=== PATIENT | female | born 1930 | race Hispanic/Latino ===

== ENCOUNTER 2017-04-13 17:35 | Inpatient (IN) | payer MEDICARE ==
[2017-04-13 17:53] VITALS: BMI 22.3
--- NOTE | 2017-04-13 18:08 | ED PDOC ---
Arrival/HPI - General Chief Complaint: Female Genitourinary Time Seen by Provider: 04/13/17 17:56 Historian: Patient, Usp - History of Present Illness Narrative History of Present Illness (Text): 04/13/17 18:04 A 87 year old female, whose past medical history includes COPD, sent into the emergency department from correction for altered mental status for 2 days. long term suspected possible UTI and attempted to treat patient. Patient refused to take medication because she did not know what it was for. Patient was sent into the emergency room for further evaluation. Patient denies somatic complaints at this time. HPI and ROS limited. PMD: Dr. Bell Time/Duration: Other (2 days) Symptom Course: Unchanged Quality: Other Context: Home (correction) Past Medical History - Provider Review Nursing Documentation Reviewed: Yes - Pulmonary Hx Respiratory Disorders: Yes Hx Chronic Obstructive Pulmonary Disease (COPD): Yes - Psychiatric Hx Substance Use: No Family/Social History - Physician Review Nursing Documentation Reviewed: Yes Family/Social History: No Known Family HX Smoking Status: Heavy Smoker > 10 Cigarettes Daily Hx Alcohol Use: Yes Hx Substance Use: No Allergies/Home Meds Allergies/Adverse Reactions: Allergies No Known Allergies Allergy (Verified 04/13/17 19:47) Review of Systems - Review of Systems Systems not reviewed;Unavailable: Altered Mental Status Physical Exam Vital Signs Reviewed: Yes Vital Signs Temp Pulse Resp BP Pulse Ox 04/13/17 23:09 98.3 F 82 20 175/75 H 96 04/13/17 21:40 81 19 115/74 93 L 04/13/17 21:00 85 25 H 121/84 100 04/13/17 17:47 98.5 F 82 18 128/60 97 Temperature: Afebrile Blood Pressure: Normal Pulse: Regular Respiratory Rate: Normal Appearance: Positive for: Well-Appearing, Non-Toxic, Comfortable Pain Distress: None Mental Status: No: Alert and Oriented X 3 (Alert and Oriented X 2, disoriented to year) - Systems Exam Head: Present: Atraumatic, Normocephalic Pupils: Present: PERRL Extroacular Muscles: Present: EOMI Conjunctiva: Present: Normal Neck: Present: Normal Range of Motion Respiratory/Chest: Present: Clear to Auscultation, Good Air Exchange. No: Respiratory Distress, Accessory Muscle Use Cardiovascular: Present: Regular Rate and Rhythm, Normal S1, S2. No: Murmurs Abdomen: Present: Normal Bowel Sounds. No: Tenderness, Distention, Peritoneal Signs Upper Extremity: Present: Normal Inspection, Normal ROM, NORMAL PULSES. No: Cyanosis, Edema Lower Extremity: Present: Normal Inspection, NORMAL PULSES, Normal ROM. No: Edema Psychiatric: Present: Alert. No: Oriented x 3 (Oriented X 2, disoriented to year) Medical Decision Making ED Course and Treatment: 04/13/17 18:04 Impression: A 87 year old female sent in for altered mental status. Plan: -- Head CT -- Chest xray -- EKG -- Labs -- Blood and Urine culture -- Urinalysis -- Reassess and disposition Progress Notes: 04/13/17 18:32 EKG shows NSR at 84bpm with LVH, isolated t wave flattening in III and V2 04/13/17 20:17 Cxray concerning for ?L sided mass. CT chest ordered. CT head shows "1. Nonspecific white matter changes. Acute infarction may be CT occult within first 24 hours." Patient has no SIRS criteria. She is afebrile with normal wbc. Source of AMS could be uti vs worsening dementia vs chest pathology vs cva. Ceftriaxone ordered as correction thought source was ua and ucx and blood cx pending. Dr. Bell to admit for ams. 04/13/17 22:18 Getting more agitated. Ativan 1mg ordered 04/13/17 23:27 CT chest shows "Lobulated soft tissue mass left upper lung concerning for neoplastic etiology. Biopsy could be performed for definitive pathologic diagnosis. Small left lower lung infiltrate and consolidation possibly infectious/atelectatic etiology. T12 compression fracture." Maxipime and levaquin added due to ?pneumonia. - Lab Interpretations Lab Results: 04/13/17 18:30 04/13/17 18:30 Lab Results 04/13/17 18:30: Sodium 139, Potassium 4.5, Chloride 103, Carbon Dioxide 26, Anion Gap 15, BUN 29 H, Creatinine 1.0, Est GFR ( Amer) > 60, Est GFR ( Non-Af Amer) 52, Random Glucose 103, Calcium 9.8, Phosphorus 3.9, Magnesium 2.2 , Total Bilirubin 0.3, AST 26, ALT 22, Alkaline Phosphatase 94, Troponin I < 0.01, Total Protein 8.0, Albumin 4.1, Globulin 3.9, Albumin/Globulin Ratio 1.1, Lipase 25 04/13/17 18:30: WBC 9.5, RBC 4.00, Hgb 11.0 L, Hct 34.2 L, MCV 85.5, MCH 27.5, MCHC 32.2, RDW 14.3, Plt Count 304, MPV 10.6, Gran % 66.2, Lymph % (Auto) 25.1, [place] % (Auto) 6.6 H, Eos % (Auto) 1.8, Baso % (Auto) 0.3, Gran # 6.28, Lymph # 2.4, [place] # 0.6, Eos # 0.2, Baso # 0.03 I have reviewed the lab results: Yes - RAD Interpretation Radiology Orders: 04/13/17 17:59 HEAD W/O CONTRAST [CT] Stat CHEST PORTABLE [RAD] Stat - Medication Orders Current Medication Orders: Discontinued Medications Sodium Chloride (Sodium Chloride 0.9%) 500 mls @ 999 mls/hr IV .Q31M STA Stop: 04/13/17 20:15 Last Admin: 04/13/17 20:25 Dose: 999 mls/hr eMAR Start Stop Document 04/13/17 20:25 CNR (Rec: 04/13/17 20:25 CNR [id number]) Intravenous Solution Start Date 04/13/17 Start Time 20:25 Ceftriaxone Sodium (Rocephin 1 Gram Ivpb (D5w)) 1 gm in 100 mls @ 200 mls/hr IVPB STAT STA PRN Reason: Protocol Stop: 04/13/17 20:58 Last Admin: 04/13/17 21:10 Dose: 200 mls/hr eMAR Start Stop Document 04/13/17 21:10 CNR (Rec: 04/13/17 21:11 CNR [id number]) Intravenous Solution Start Date 04/13/17 Start Time 21:11 Lorazepam (Ativan) 0.5 mg IVP STAT STA PRN Reason: Protocol Stop: 04/13/17 20:08 Last Admin: 04/13/17 20:43 Dose: 0.5 mg IVP Administration Document 04/13/17 20:43 CNR (Rec: 04/13/17 20:43 CNR [id number]) Charges for Administration # of IVP Administrations 1 Lorazepam (Ativan) 1 mg IVP STAT STA PRN Reason: Protocol Stop: 04/13/17 22:18 Last Admin: 04/13/17 22:30 Dose: 1 mg IVP Administration Document 04/13/17 22:30 RD (Rec: 04/13/17 22:30 RD [id number]) Charges for Administration # of IVP Administrations 1 - Scribe Statement The provider has reviewed the documentation as recorded by the Scriblisa Garrison Provider Scribe Attestation: All medical record entries made by the Scribe were at my direction and personally dictated by me. I have reviewed the chart and agree that the record accurately reflects my personal performance of the history, physical exam, medical decision making, and the department course for this patient. I have also personally directed, reviewed, and agree with the discharge instructions and disposition. Disposition/Present on Arrival - Present on Arrival Any Indicators Present on Arrival: No History of DVT/PE: No History of Uncontrolled Diabetes: No Urinary Catheter: No History of Decub. Ulcer: No History Surgical Site Infection Following: None - Disposition Have Diagnosis and Disposition been Completed?: Yes Diagnosis: Altered mental status, Anemia, Pneumonia, Lung mass Disposition: HOSPITALIZED Disposition Time: 21:21 Patient Plan: Admission Patient Problems: Current Active Problems Problem Status Onset Altered mental status Acute Anemia Acute Abnormal chest xray Acute Condition: FAIR
[2017-04-13 18:51] LABS: BASO # 0.03 K/mm3 (0.0-2.0); BASO % 0.3 % (0.0-3.0); EOS # 0.2 (0.0-0.7); EOS % 1.8 % (1.5-5.0); GRAN # 6.28 (1.4-6.5); GRAN % 66.2 % (50.0-68.0); HEMATOCRIT 34.2 % (36.0-48.0); LYMPH # 2.4 (1.2-3.4); LYMPH % 25.1 % (22.0-35.0); MEAN CELL VOLUME 85.5 fl (80.0-105.0); MEAN CORPUSCULAR HEMOGLOBIN 27.5 pg (25.0-35.0); MEAN CORPUSCULAR HGB CONC 32.2 g/dl (31.0-37.0); MEAN PLATELET VOLUME 10.6 fl (7.0-11.0); MONO # 0.6 (0.1-0.6); MONO % 6.6 % (1.0-6.0); RED CELL DISTRIBUTION WIDTH 14.3 % (11.5-14.5); WHITE BLOOD COUNT 9.5 10^3/ul (4.5-11.0)
[2017-04-13 19:00] LABS: ALB/GLOB RATIO 1.1 (1.1-1.8); ALKALINE PHOSPHATASE 94 U/L (38-126); ALT/SGPT 22 U/L (7-56); AST/SGOT 26 U/L (14-36); BILIRUBIN,TOTAL 0.3 mg/dL (0.2-1.3); BLOOD UREA NITROGEN 29 mg/dL (7-21); CALCIUM 9.8 mg/dL (8.4-10.5); CARBON DIOXIDE 26 mmol/L (21-33); CHLORIDE 103 mmol/L (98-107); GFR AFRICAN-AMERICAN > 60; GLUCOSE,RANDOM 103 mg/dL (70-110); LIPASE 25 U/L (23-300); MAGNESIUM 2.2 mg/dL (1.7-2.2); PHOSPHOROUS 3.9 mg/dL (2.5-4.5); POTASSIUM 4.5 mmol/L (3.6-5.0); SODIUM 139 mmol/L (132-148)
[2017-04-13 19:11] LABS: TROPONIN I < 0.01 ng/mL
[2017-04-13] MEDS ORDERED: Sodium Chloride 0.9% 500 ML IV STA (19:45)
[2017-04-13] MEDS ORDERED: cefTRIAXone 1 gm 1 GM/100 ML BAG IVPB STA (20:29)
--- NOTE | 2017-04-13 20:55 | CT ---
EXAM: CT Head Without Intravenous Contrast CLINICAL HISTORY: 87 years old, female; Signs and symptoms; Altered mental status/memory loss; Confusion or disorientation TECHNIQUE: Axial computed tomography images of the head/brain without intravenous contrast. All CT scans at this facility use one or more dose reduction techniques, viz.: automated exposure control; ma/kV adjustment per patient size (including targeted exams where dose is matched to indication; i.e. head); or iterative reconstruction technique. COMPARISON: No relevant prior studies available. FINDINGS: Brain: Wwbu-ca-riepckcl atrophy. No intracranial hemorrhage. No mass. Several scattered foci of decreased attenuation within periventricular/subcortical white matter. No definite edema. Ventricles: No hydrocephalus. Bones/joints: No acute fracture. Soft tissues: Unremarkable. Vasculature: Atherosclerotic disease of intracranial arteries. Sinuses: No acute sinusitis. Mastoid air cells: No mastoid effusion. Orbits: Unremarkable as visualized. IMPRESSION: 1. Nonspecific white matter changes. Acute infarction may be CT occult within first 24 hours. If a focal deficit persists, consider followup CT or MRI for further evaluation. 2. Incidental/non-acute findings are described above.
[2017-04-13 21:11] LABS: URINE BILIRUBIN NEGATIVE (NEGATIVE); URINE BLOOD SMALL (NEGATIVE); URINE GLUCOSE (UA) NEGATIVE (NEGATIVE); URINE KETONE 15 mg/dL (NEGATIVE); URINE LEUKOCYTE ESTERASE NEGATIVE Leu/uL (NEGATIVE); URINE PROTEIN TRACE mg/dL (<30 mg/dL); URINE UROBILINOGEN 0.2 E.U./dL (<1 E.U./dL)
[2017-04-13 21:16] LABS: URINE APPEARANCE SL CLOUDY (CLEAR); URINE COLOR YELLOW (YELLOW)
[2017-04-13] MEDS ORDERED: Albuterol-Ipratrop 3 mg / 0.5 (3 ml) UD IH STA (21:21)
[2017-04-13 21:25] LABS: URINE BACTERIA FEW (NEG)
[2017-04-13] MEDS ORDERED: Iohexol 350 MG/100 ML VIAL ONE (21:50)
--- NOTE | 2017-04-13 23:20 | CT ---
EXAM: CT Chest With Intravenous Contrast EXAM DATE/TIME: 04/13/2017 9:23 PM CLINICAL HISTORY: 87 years old, female; Condition or disease; Other: Left sided mass vs. Infiltrate; Additional info: Xray l sided mass vs infiltrate, AMS TECHNIQUE: Axial computed tomography images of the chest with intravenous contrast. All CT scans at this facility use one or more dose reduction techniques, viz.: automated exposure control; ma/kV adjustment per patient size (including targeted exams where dose is matched to indication; i.e. head); or iterative reconstruction technique. MIP reconstructed images were created and reviewed. Coronal and sagittal reformatted images were created and reviewed. CONTRAST: 41.3 mL of OMNI 350 administered intravenously. COMPARISON: No relevant prior studies available. FINDINGS: Mild emphysematous changes in the upper lungs. Pulmonary embolism cannot be excluded due to bolus timing (lack of opacification of the pulmonary arteries). Mediastinal lymph nodes are noted. No aortic dissection or aneurysm. There is a lobulated mass in the left upper lung abutting the pulmonary fissure measuring approximately 2 x 3 cm. Possible second small subcentimeter lesion in the left lower lung image 96. Followup recommended to assess for stability. Small left lower lung infiltrate and consolidation possibly of infectious/atelectatic etiology. No pleural or pericardial effussions. Low-attenuation renal lesions incompletely imaged. There is a severe compression fracture of T12, age indeterminate.If there are prior studies, I would be happy to correlate them. IMPRESSION: Lobulated soft tissue mass left upper lung concerning for neoplastic etiology. Biopsy could be performed for definitive pathologic diagnosis. Small left lower lung infiltrate and consolidation possibly infectious/atelectatic etiology. T12 compression fracture.
[2017-04-13] MEDS ORDERED: levoFLOXacin 750 mg in D5W 750 MG/150 ML BAG IVPB STA (23:26)
[2017-04-13] MEDS ORDERED: Cefepime 1gm in NS 100ml 1 GM/100 ML BAG IVPB STA (23:26)
[2017-04-14 07:43] LABS: BASO # 0.03 K/mm3 (0.0-2.0); BASO % 0.3 % (0.0-3.0); EOS # 0.3 (0.0-0.7); EOS % 3.3 % (1.5-5.0); GRAN # 6.03 (1.4-6.5); GRAN % 69.7 % (50.0-68.0); LYMPH # 1.8 (1.2-3.4); LYMPH % 20.3 % (22.0-35.0); MEAN CELL VOLUME 85.1 fl (80.0-105.0); MEAN CORPUSCULAR HEMOGLOBIN 27.3 pg (25.0-35.0); MEAN CORPUSCULAR HGB CONC 32.1 g/dl (31.0-37.0); MEAN PLATELET VOLUME 10.5 fl (7.0-11.0); MONO # 0.6 (0.1-0.6); MONO % 6.4 % (1.0-6.0); RED CELL DISTRIBUTION WIDTH 14.1 % (11.5-14.5); WHITE BLOOD COUNT 8.7 10^3/ul (4.5-11.0)
[2017-04-14 07:59] LABS: IRON 58 ug/dL (45-180)
[2017-04-14 08:00] LABS: ALKALINE PHOSPHATASE 81 U/L (38-126); ALT/SGPT 23 U/L (7-56); AST/SGOT 20 U/L (14-36); BILIRUBIN,TOTAL 0.4 mg/dL (0.2-1.3); BLOOD UREA NITROGEN 23 mg/dL (7-21); CALCIUM 9.1 mg/dL (8.4-10.5); CARBON DIOXIDE 24 mmol/L (21-33); CHLORIDE 105 mmol/L (98-107); CHOLESTEROL 148 mg/dL (130-200); GFR AFRICAN-AMERICAN > 60; GLUCOSE,RANDOM 92 mg/dL (70-110); POTASSIUM 4.2 mmol/L (3.6-5.0); SODIUM 139 mmol/L (132-148); TOTAL PROTEIN 7.1 g/dL (5.8-8.3)
--- NOTE | 2017-04-14 08:11 | RAD ---
HISTORY: altered COMPARISON: No prior. FINDINGS: LUNGS: There is a 2 x 4 cm mass in the left upper lobe. This is suspicious for neoplastic lesion. PLEURA: No significant pleural effusion identified, no pneumothorax apparent. CARDIOVASCULAR: Normal. OSSEOUS STRUCTURES: No significant abnormalities. VISUALIZED UPPER ABDOMEN: Normal. OTHER FINDINGS: None. IMPRESSION: There is a 2 x 4 cm mass in the left upper lobe. This is suspicious for neoplastic lesion.
[2017-04-14 08:14] LABS: TROPONIN I < 0.01 ng/mL
[2017-04-14 08:33] LABS: THYROID STIMULATING HORMONE 2.38 mIU/mL (0.46-4.68)
[2017-04-14] MEDS: Albuterol-Ipratrop 3 mg / 0.5 (3 ml) UD IH PRN (09:00)
[2017-04-14] MEDS ORDERED: Fluticasone-Salmeterol 100-50mcg Diskus IH SCH (10:00)
[2017-04-14] MEDS ORDERED: Piperacillin/Tazobact 3.375 gm 100 ML IVPB SCH (12:00)
[2017-04-14] MEDS: TraMADol/Apap 37.5/325 mg Tab PO PRN (12:21)
[2017-04-14 13:02] LABS: TRANSFERRIN 259.75 mg/dL (206-381)
--- NOTE | 2017-04-14 13:33 | CP.PCM.HP ---
History of Present Illness - History of Present Illness History of Present Illness: CC: AMS 87 F with past medical history includes NH (with angio - 2 years- unkown if any stent placement), COPD, HTN presents from an assisted living for altered mental status that is progressively worsening over the past 2 days. As per family: pt is from an assisted living were she was treated with Macrobid for possible UTI with no improvement. Pt has had other episodes of AMS which was mainly caused by multiple UTI in the past. 12 point ROS performed ut limited due to AMS PMH: multiple UTIs, COPD PSH: none ALL: nka MED: copd meds Present on Admission - Present on Admission Any Indicators Present on Admission: No Review of Systems - Review of Systems Systems not reviewed;Unavailable: Altered Mental Status Past Patient History - Past Social History Smoking Status: Unknown If Ever Smoked - PULMONARY Hx Chronic Obstructive Pulmonary Disease (COPD): Yes - MUSCULOSKELETAL/RHEUMATOLOGICAL Hx Falls: Yes - PSYCHIATRIC Hx Substance Use: No - SURGICAL HISTORY Hx Surgeries: No Meds Allergies/Adverse Reactions: Allergies Allergy/AdvReac Type Severity Reaction Status Date / Time No Known Allergies Allergy Verified 04/13/17 19:47 Physical Exam - Constitutional Appears: No Acute Distress - Head Exam Head Exam: ATRAUMATIC, NORMOCEPHALIC - Eye Exam Eye Exam: EOMI, PERRL - ENT Exam ENT Exam: Mucous Membranes Moist - Respiratory Exam Respiratory Exam: Clear to Auscultation Bilateral. absent: Wheezes - Cardiovascular Exam Cardiovascular Exam: REGULAR RHYTHM, RRR, +S1, +S2 - GI/Abdominal Exam GI & Abdominal Exam: Normal Bowel Sounds, Soft. absent: Tenderness - Extremities Exam Extremities exam: Negative for: calf tenderness, pedal edema - Neurological Exam Neurological exam: Alert, CN II-XII Intact, Oriented x3 - Psychiatric Exam Psychiatric exam: Normal Affect, Normal Mood - Skin Skin Exam: Dry, Intact, Warm Results - Vital Signs Recent Vital Signs: Last Vital Signs Temp 97.8 F 04/14/17 08:00 Pulse 76 04/14/17 09:03 Resp 20 04/14/17 08:00 BP 130/64 04/14/17 08:00 Pulse Ox 98 04/14/17 08:00 - Labs Result Diagrams: 04/14/17 07:30 04/14/17 07:30 Labs: Laboratory Results - last 24 hr 04/13/17 04/14/17 04/14/17 20:55 07:30 07:30 WBC 8.7 RBC 3.88 Hgb 10.6 L Hct 33.0 L MCV 85.1 MCH 27.3 MCHC 32.1 RDW 14.1 Plt Count 289 MPV 10.5 Gran % 69.7 H Lymph % (Auto) 20.3 L [place] % (Auto) 6.4 H Eos % (Auto) 3.3 Baso % (Auto) 0.3 Gran # 6.03 Lymph # 1.8 [place] # 0.6 Eos # 0.3 Baso # 0.03 Sodium 139 Potassium 4.2 Chloride 105 Carbon Dioxide 24 Anion Gap 14 BUN 23 H Creatinine 0.9 Est GFR ( Amer) > 60 Est GFR (Non-Af Amer) 59 Random Glucose 92 Hemoglobin A1c Calcium 9.1 Iron TIBC % Saturation Transferrin Total Bilirubin 0.4 AST 20 ALT 23 Alkaline Phosphatase 81 Ammonia Troponin I < 0.01 NT-Pro-B Natriuret Pep 546 H Total Protein 7.1 Albumin 3.6 Globulin 3.6 Albumin/Globulin Ratio 1.0 L Triglycerides 74 Cholesterol 148 LDL Cholesterol Direct 90 HDL Cholesterol 43 TSH 3rd Generation Urine Color Yellow Urine Appearance Sl cloudy Urine pH 6.0 Ur Specific [place] 1.025 Urine Protein Trace H Urine Glucose (UA) Negative Urine Ketones 15 H Urine Blood Small H Urine Nitrate Negative Urine Bilirubin Negative Urine Urobilinogen 0.2 Ur Leukocyte Esterase Negative Urine RBC 1 - 3 Urine WBC 1 - 3 Ur Epithelial Cells 4 - 5 Urine Bacteria Few 04/14/17 04/14/17 04/14/17 07:30 07:30 07:30 WBC RBC Hgb Hct MCV MCH MCHC RDW Plt Count MPV Gran % Lymph % (Auto) [place] % (Auto) Eos % (Auto) Baso % (Auto) Gran # Lymph # [place] # Eos # Baso # Sodium Potassium Chloride Carbon Dioxide Anion Gap BUN Creatinine Est GFR ( Amer) Est GFR (Non-Af Amer) Random Glucose Hemoglobin A1c 5.8 Calcium Iron 58 TIBC 291 % Saturation 20 Transferrin 259.75 Total Bilirubin AST ALT Alkaline Phosphatase Ammonia Troponin I NT-Pro-B Natriuret Pep Total Protein Albumin Globulin Albumin/Globulin Ratio Triglycerides Cholesterol LDL Cholesterol Direct HDL Cholesterol TSH 3rd Generation 2.38 Urine Color Urine Appearance Urine pH Ur Specific [place] Urine Protein Urine Glucose (UA) Urine Ketones Urine Blood Urine Nitrate Urine Bilirubin Urine Urobilinogen Ur Leukocyte Esterase Urine RBC Urine WBC Ur Epithelial Cells Urine Bacteria 04/14/17 07:30 WBC RBC Hgb Hct MCV MCH MCHC RDW Plt Count MPV Gran % Lymph % (Auto) [place] % (Auto) Eos % (Auto) Baso % (Auto) Gran # Lymph # [place] # Eos # Baso # Sodium Potassium Chloride Carbon Dioxide Anion Gap BUN Creatinine Est GFR ( Amer) Est GFR (Non-Af Amer) Random Glucose Hemoglobin A1c Calcium Iron TIBC % Saturation Transferrin Total Bilirubin AST ALT Alkaline Phosphatase Ammonia 9 Troponin I NT-Pro-B Natriuret Pep Total Protein Albumin Globulin Albumin/Globulin Ratio Triglycerides Cholesterol LDL Cholesterol Direct HDL Cholesterol TSH 3rd Generation Urine Color Urine Appearance Urine pH Ur Specific [place] Urine Protein Urine Glucose (UA) Urine Ketones Urine Blood Urine Nitrate Urine Bilirubin Urine Urobilinogen Ur Leukocyte Esterase Urine RBC Urine WBC Ur Epithelial Cells Urine Bacteria Assessment & Plan - Assessment and Plan (Free Text) Assessment: 87 F with past medical history includes NH (with angio - 2 years- unknown if any stent placement), COPD, HTN presents from an assisted living for altered mental status. 1. AMS - possibly due to pneumonia - wbc normal; afebrile - UA normal - EKG reviewed - CTH: shows no acute abnormality - CXR shows 2x 4 cm L upper lung mass - CT chest: CT chest shows Lobulated soft tissue mass left upper lung concerning for neoplastic etiology. Biopsy could be performed for definitive pathologic diagnosis. Small left lower lung infiltrate and consolidation possibly infectious/atelectatic etiology. T12 compression fracture - Cont Abx - Cefepime and Doxy - F/u ID recs - F/u Pulm recs - f/u septic work up - ammonia normal - F/u Hba1c, lipid profile, TSH, trops, Pct 2. Lung mass - CT chest shows "Lobulated soft tissue mass left upper lung concerning for neoplastic etiology. Biopsy could be performed for definitive pathologic diagnosis. - Spoke to the patients family (in length which stated the patient is DNR/DNI and family does not wish to pursue the lung mass and get a biopsy - bc even if it shows up as a malignancy they do no want any chemo or radiation. - f/u pulm recs 3. COPD - home Duoneb and Advair 4. Anemia - f/u anemia work up 5. HTN - Currently stable 6. Hx of heart dx - trops x neg - Will obtain [place] [facility] - Cont home Aspirin 7. GI/DVT ppx Case and plan was reviewed and discussed in detail with Dr Jenkins.
[2017-04-14] MEDS: Cefepime IV 2 gm in NS 2 GM/100 ML BAG IVPB SCH (15:59)
[2017-04-14 16:11] LABS: FOLATE 9.7 ng/mL
[2017-04-14] MEDS: Arformoterol 15 mcg/2 ml Inh Sol IH SCH (19:04)
[2017-04-14] MEDS: Budesonide 0.25 mg/2 ml Inhal Susp UD IH SCH (19:04)
--- NOTE | 2017-04-14 19:07 | CARD ---
APPROVED REPORT EKG Measurement Heart [id number] <Conclusion> Normal sinus rhythm Minimal voltage criteria for LVH, may be normal variant Inferior infarct, age undetermined Abnormal ECG
[2017-04-15] MEDS: Cefepime IV 2 gm in NS 2 GM/100 ML BAG IVPB SCH (02:02)
[2017-04-15] MEDS: Pantoprazole 40 mg EC Tab PO SCH (06:09)
[2017-04-15 07:07] LABS: BASO # 0.03 K/mm3 (0.0-2.0); BASO % 0.4 % (0.0-3.0); EOS # 0.4 (0.0-0.7); EOS % 4.3 % (1.5-5.0); GRAN # 4.9 (1.4-6.5); GRAN % 60.5 % (50.0-68.0); HEMATOCRIT 32.1 % (36.0-48.0); LYMPH % 24.4 % (22.0-35.0); MEAN CELL VOLUME 85.1 fl (80.0-105.0); MEAN CORPUSCULAR HEMOGLOBIN 27.1 pg (25.0-35.0); MEAN CORPUSCULAR HGB CONC 31.8 g/dl (31.0-37.0); MONO # 0.8 (0.1-0.6); MONO % 10.4 % (1.0-6.0); RED CELL DISTRIBUTION WIDTH 14.3 % (11.5-14.5); WHITE BLOOD COUNT 8.1 10^3/ul (4.5-11.0)
[2017-04-15] MEDS: Budesonide 0.25 mg/2 ml Inhal Susp UD IH SCH ×2 (07:17→20:06)
[2017-04-15] MEDS: Arformoterol 15 mcg/2 ml Inh Sol IH SCH ×2 (07:17→20:06)
[2017-04-15 07:59] LABS: ALKALINE PHOSPHATASE 75 U/L (38-126); ALT/SGPT 24 U/L (7-56); AST/SGOT 26 U/L (14-36); BILIRUBIN,TOTAL 0.6 mg/dL (0.2-1.3); BLOOD UREA NITROGEN 20 mg/dL (7-21); CALCIUM 9.1 mg/dL (8.4-10.5); CARBON DIOXIDE 24 mmol/L (21-33); CHLORIDE 106 mmol/L (98-107); GFR AFRICAN-AMERICAN > 60; GLUCOSE,RANDOM 92 mg/dL (70-110); POTASSIUM 4.2 mmol/L (3.6-5.0); SODIUM 138 mmol/L (132-148); TOTAL PROTEIN 6.9 g/dL (5.8-8.3)
--- NOTE | 2017-04-15 10:59 | IP.NPCORE ---
Pneumonia Progress Notes - Oxygenation Assessment (REQUIRED) Documented 02: Yes O2 Saturation: 93 Oxygen Delivery Method: Room Air Date: 04/15/17 - Blood Cultures (REQUIRED) Culture drawn: Yes Date:: 04/13/17 - Appropriate Antibiotic Appropriate Antibiotic within 24 hours of Admission:: Yes (on Doxycycline and Maxipime) Date:: 04/14/17 Current Antibiotic: Doxycycline and Maxipime
--- NOTE | 2017-04-15 11:10 | CON ---
DATE: 04/15/2017 PULMONARY CONSULTATION REFERRING PHYSICIAN: Rd Jenkins MD REASON FOR CONSULTATION: Pneumonia. IDENTIFICATION DATA: History is obtained via extensive discussion with Dr. Jenkins and the medical residents. I have also reviewed the chart at length. The patient does not appear to be an adequate historian. HISTORY OF PRESENT ILLNESS: The patient is an 87-year-old female, with past medical history significant for chronic obstructive pulmonary disease, coronary artery disease, hypertension, and dementia who was admitted to [facility] - transferred from the assisted - because of a change in her mental status over the past 2 days. At the assisted, the patient was suspected to have a possible urinary tract infection, but refused treatment. The patient was thus admitted to the hospital for additional evaluation and treatment. There is no history of shortness of breath at rest, dyspnea on exertion, cough, or sputum production. There is also no history of chest pain, coughing up of blood, or chest pain - made worse with deep respirations. There have been no documented temperatures in the hospital. No history of chills or infectious exposure. No history of night sweats, weight loss or appetite change prior to the above events. No history of leg or calf pains. No history of syncope or diaphoresis. No history of recent travel or trauma. REVIEW OF SYSTEMS: No history of nausea, vomiting or diarrhea. No new musculoskeletal complaints. Rest of the review of systems is negative. ALLERGIES: NO KNOWN ALLERGIES. SOCIAL HISTORY: Positive for tobacco and negative for alcohol. FAMILY HISTORY: No inheritable diseases. MEDICATIONS: Home medications are not listed in the current chart. PHYSICAL EXAMINATION: SUBJECTIVE: The patient appears comfortable at rest. She is not short of breath. VITAL SIGNS: Temperature is 97.8, pulse of 76, respirations of 18/20, and blood pressure of 130/64. Oxygen saturation on room air is 98%. HEENT: Normocephalic and atraumatic. NECK: No JVD. CARDIOVASCULAR: Systolic ejection murmur at the lower left sternal border. No S3, gallop. LUNGS: Decreased breath sounds at the bases. No rhonchi. No wheezing. EXTREMITIES: Mild edema. No cyanosis and no clubbing. Calves are nontender to palpation. GASTROINTESTINAL: Abdomen is soft, nontender and nondistended. Bowel sounds are positive. SKIN: No acute rash. NEUROLOGIC: Exam is limited at the present time. PERTINENT LABORATORY DATA CAT scan of the chest was done on 04/13/2017 and reviewed. There is a lobulated soft tissue mass noted in the left upper lobe. There is also a very small patchy infiltrate noted at the left base. CBC: White count of 8.1, hemoglobin of 10.2, hematocrit of 32.1, and platelets of 290. Complete metabolic profile: BUN of 23. B-type nature peptide of 546. Rest of the metabolic profile is within normal limits. Procalcitonin was done yesterday - negative - 0.07. IMPRESSION: 1. Left upper lobe lung mass. 2. Rule out pneumonia left lower lobe - less likely. 3. Chronic obstructive pulmonary disease. 4. Coronary artery disease. 5. Encephalopathy - improved. PLAN: Again, I did discuss the case with Dr. Jenkins and the medical residents at length. I have also reviewed the chart at length. The patient presents to [facility] - transferred from the assisted - because of a change in her mental status for the past 2 days. I did review the CAT scan of the chest - noted above. There is a left upper lobe lung mass noted. There is also a very small patchy infiltrate noted at the left base. As above, the procalcitonin was done and it is negative. This does make pneumonia less likely, but still possible. I would continue with the antibiotic coverage as per infectious disease. Input by Dr. Costa is noted. As above, noted on the CAT scan, there is a left upper lobe lung mass - possibly consistent with a malignancy. At this point in time, the patient is very advanced in age, demented, and is a DNR/DNI status. We are awaiting additional family decisions. However, given the above, I would take a nonaggressive approach in this case. The patient remains on inhalation therapy. There is no significant bronchospasm on physical exam. There is no significant alveolar-arterial gradient. I did discuss the case with Dr. Jenkins yesterday. I will discuss the case with him again this morning. Thank you very much for this pulmonary consultation. Lambert Johns MD [facility] # [id number] MTDD
[2017-04-15] MEDS ORDERED: Cefepime IV 2 gm in NS 2 GM/100 ML BAG IVPB SCH (12:25)
[2017-04-15] MEDS: Albuterol-Ipratrop 3 mg / 0.5 (3 ml) UD IH PRN (13:41)
[2017-04-15] MEDS: TraMADol/Apap 37.5/325 mg Tab PO PRN (14:09)
--- NOTE | 2017-04-15 14:27 | CP.PCM.PN ---
Subjective - Date & Time of Evaluation Date of Evaluation: 04/15/17 Time of Evaluation: 07:00 - Subjective Subjective: Medicine progress note: Pt seen and examined at bedside. No acute events overnight. Pt still confused AAO x 1 and agitated at times. Denies any other complaints. 12 point ROS performed and limited due to altered mental status. Objective - Vital Signs/Intake and Output Vital Signs (last 24 hours): Temp Pulse Resp BP Pulse Ox 99.1 F 86 19 117/59 L 93 L 04/15/17 07:30 04/15/17 07:30 04/15/17 07:30 04/15/17 07:30 04/15/17 11:07 Intake and Output: 04/15/17 04/15/17 06:59 18:59 Intake Total 480 180 Output Total 250 Balance 480 -70 - Medications Medications: Current Medications Albuterol/Ipratropium (Duoneb 3 Mg/0.5 Mg (3 Ml) Ud) 3 ml IH Q2H PRN PRN Reason: Shortness of Breath Last Admin: 04/15/17 13:41 Dose: 3 ml Arformoterol Tartrate (Brovana) 15 mcg IH [id number] [facility] Last Admin: 04/15/17 07:17 Dose: 15 mcg Aspirin (Aspirin Chewable) 81 mg PO DAILY [facility] Last Admin: 04/15/17 11:05 Dose: 81 mg Budesonide (Pulmicort Respules) 0.25 mg IH [id number] [facility]EL[facility] Last Admin: 04/15/17 07:17 Dose: 0.25 mg Doxycycline Hyclate 100 mg/ (Sodium Chloride) 100 mls @ 100 mls/hr IVPB Q12 [facility] PRN Reason: Protocol Stop: 04/19/17 22:01 Last Admin: 04/15/17 11:05 Dose: 100 mls/hr Cefepime HCl (Maxipime 2gm) 2 gm in 100 mls @ 100 mls/hr IVPB DAILY [facility] PRN Reason: Protocol Stop: 04/19/17 14:01 Pantoprazole Sodium (Protonix Ec Tab) 40 mg PO 0600 [facility] Last Admin: 04/15/17 06:09 Dose: 40 mg Tramadol/Acetaminophen (Ultracet 37.5/325 Mg) 1 tab PO Q8H PRN PRN Reason: Pain, severe (8-10) Last Admin: 04/15/17 14:09 Dose: 1 tab - Labs Labs: 04/15/17 06:30 04/15/17 06:30 - Constitutional Appears: No Acute Distress - Head Exam Head Exam: ATRAUMATIC, NORMOCEPHALIC - Eye Exam Eye Exam: EOMI, PERRL - ENT Exam ENT Exam: Mucous Membranes Moist - Respiratory Exam Respiratory Exam: Clear to Ausculation Bilateral. absent: Rales, Wheezes - Cardiovascular Exam Cardiovascular Exam: REGULAR RHYTHM, +S1, +S2 - GI/Abdominal Exam GI & Abdominal Exam: Soft. absent: Tenderness - Extremities Exam Extremities Exam: absent: Calf Tenderness, Pedal Edema - Neurological Exam Neurological Exam: Alert, Awake - Psychiatric Exam Psychiatric exam: Normal Affect, Normal Mood - Skin Skin Exam: Dry, Intact, Warm Assessment and Plan - Assessment and Plan (Free Text) Assessment: 87 F with past medical history includes MS (with angio - 2 years- unknown if any stent placement), COPD, HTN presents from an assisted living for altered mental status. 1. AMS - possibly due to pneumonia - wbc normal; afebrile - procal 0.07 low - Consulted neuro for recs - 1:1 discontinued - Ativan prn as needed for agitation - UA normal - EKG reviewed - CTH: shows no acute abnormality - CXR shows 2x 4 cm L upper lung mass - CT chest: CT chest shows Lobulated soft tissue mass left upper lung concerning for neoplastic etiology. Biopsy could be performed for definitive pathologic diagnosis. Small left lower lung infiltrate and consolidation possibly infectious/atelectatic etiology. T12 compression fracture - F/u ID recs - cont Cefepime and Doxy - F/u Pulm recs - Blood cx x 24 is neg - ammonia normal 2. Lung mass - CT chest shows "Lobulated soft tissue mass left upper lung concerning for neoplastic etiology. Biopsy could be performed for definitive pathologic diagnosis. - Spoke to the patients family (in length which stated the patient is DNR/DNI ( POLST) and family does not wish to pursue the lung mass and get a biopsy - bc even if it shows up as a malignancy they do no want any chemo or radiation. - f/u pulm recs 3. COPD - Home Duoneb and Advair 4. Anemia - Likely anemia of chronic dx - f/u anemia work up 5. HTN - Currently stable 6. Hx of heart dx - trops neg - Will obtain records from [facility] [place] of prior MS - Cont home Aspirin 7. GI/DVT ppx Case and plan was reviewed and discussed in detail with Dr Jenkins.
--- NOTE | 2017-04-15 14:45 | CP.PCM.CON ---
<Tia Mays - Last Filed: 04/15/17 18:39> History of Present Illness - History of Present Illness History of Present Illness: PGY-2 Neurology consult note for Dr. Trujillo's service 87 F with past medical history includes DC, COPD, HTN presents from an assisted living for altered mental status. Per family at bedside over the past few months patient has had episodes of mild confusion however it is progressively worsening over the past 2 days. Patient is from an assisted living where she was treated with Macrobid for possible UTI. Family reports past episode of AMS with delirium during UTI infection. Patient is unsure why she is in the hospital. She has states that this morning she feels tired. She was agitated and confused overnight. She reports coughing, denies headache, dizziness, chest pain, focal deficits. PMH: multiple UTIs, COPD, HTN PSH: none social history: light smoker, occasional alcohol use, denies illicit drug use ALL: nkda Review of Systems - Review of Systems All systems: reviewed and no additional remarkable complaints except (as stated in HPI) Past Patient History - Past Social History Smoking Status: Unknown If Ever Smoked - PULMONARY Hx Chronic Obstructive Pulmonary Disease (COPD): Yes - MUSCULOSKELETAL/RHEUMATOLOGICAL Hx Falls: Yes - PSYCHIATRIC Hx Substance Use: No - SURGICAL HISTORY Hx Surgeries: No Meds Allergies/Adverse Reactions: Allergies Allergy/AdvReac Type Severity Reaction Status Date / Time No Known Allergies Allergy Verified 04/13/17 19:47 - Medications Medications: Current Medications Albuterol/Ipratropium (Duoneb 3 Mg/0.5 Mg (3 Ml) Ud) 3 ml IH Q2H PRN PRN Reason: Shortness of Breath Last Admin: 04/15/17 13:41 Dose: 3 ml Arformoterol Tartrate (Brovana) 15 mcg IH [id number] [facility]ELA Last Admin: 04/15/17 07:17 Dose: 15 mcg Aspirin (Aspirin Chewable) 81 mg PO DAILY [facility] Last Admin: 04/15/17 11:05 Dose: 81 mg Budesonide (Pulmicort Respules) 0.25 mg IH [id number] [facility] Last Admin: 04/15/17 07:17 Dose: 0.25 mg Doxycycline Hyclate 100 mg/ (Sodium Chloride) 100 mls @ 100 mls/hr IVPB Q12 [facility] PRN Reason: Protocol Stop: 04/19/17 22:01 Last Admin: 04/15/17 11:05 Dose: 100 mls/hr Cefepime HCl (Maxipime 2gm) 2 gm in 100 mls @ 100 mls/hr IVPB DAILY [facility] PRN Reason: Protocol Stop: 04/19/17 14:01 Pantoprazole Sodium (Protonix Ec Tab) 40 mg PO 0600 [facility] Last Admin: 04/15/17 06:09 Dose: 40 mg Tramadol/Acetaminophen (Ultracet 37.5/325 Mg) 1 tab PO Q8H PRN PRN Reason: Pain, severe (8-10) Last Admin: 04/15/17 14:09 Dose: 1 tab Physical Exam - Constitutional Appears: No Acute Distress - Head Exam Head Exam: ATRAUMATIC, NORMAL INSPECTION, NORMOCEPHALIC - Eye Exam Eye Exam: EOMI, Normal appearance - ENT Exam ENT Exam: Mucous Membranes Moist - Respiratory Exam Respiratory Exam: Rhonchi, NORMAL BREATHING PATTERN. absent: Respiratory Distress - Cardiovascular Exam Cardiovascular Exam: REGULAR RHYTHM. absent: Tachycardia, Systolic Murmur - Extremities Exam Extremities exam: Positive for: normal inspection. Negative for: pedal edema, tenderness - Neurological Exam Neurological exam: Alert, CN II-XII Intact - Expanded Neurological Exam Expanded Patient oriented to: person Speech: Fluid Speech Cranial nerves: EOM's Intact: Normal, Nystagmus: Normal, Tongue Deviation: Normal Cerebellar Function: Finger to Nose: Normal Upper motor neuron: Pronator Drift: Normal Results - Vital Signs Recent Vital Signs: Last Vital Signs Temp 99.1 F 04/15/17 07:30 Pulse 86 04/15/17 07:30 Resp 19 04/15/17 07:30 BP 117/59 L 04/15/17 07:30 Pulse Ox 93 L 04/15/17 11:07 - Labs Result Diagrams: 04/15/17 06:30 04/15/17 06:30 Labs: Laboratory Results - last 24 hr 04/14/17 04/14/17 04/15/17 07:30 12:00 06:30 WBC 8.1 RBC 3.77 Hgb 10.2 L Hct 32.1 L MCV 85.1 MCH 27.1 MCHC 31.8 RDW 14.3 Plt Count 290 MPV 11.0 Gran % 60.5 Lymph % (Auto) 24.4 [place] % (Auto) 10.4 H Eos % (Auto) 4.3 Baso % (Auto) 0.4 Gran # 4.90 Lymph # 2.0 [place] # 0.8 H Eos # 0.4 Baso # 0.03 Sodium Potassium Chloride Carbon Dioxide Anion Gap BUN Creatinine Est GFR ( Amer) Est GFR (Non-Af Amer) Random Glucose Calcium Total Bilirubin AST ALT Alkaline Phosphatase Total Protein Albumin Globulin Albumin/Globulin Ratio Vitamin B12 311 Folate 9.7 Procalcitonin 0.07 L 04/15/17 06:30 WBC RBC Hgb Hct MCV MCH MCHC RDW Plt Count MPV Gran % Lymph % (Auto) [place] % (Auto) Eos % (Auto) Baso % (Auto) Gran # Lymph # [place] # Eos # Baso # Sodium 138 Potassium 4.2 Chloride 106 Carbon Dioxide 24 Anion Gap 12 BUN 20 Creatinine 1.0 Est GFR ( Amer) > 60 Est GFR (Non-Af Amer) 52 Random Glucose 92 Calcium 9.1 Total Bilirubin 0.6 AST 26 ALT 24 Alkaline Phosphatase 75 Total Protein 6.9 Albumin 3.4 Globulin 3.5 Albumin/Globulin Ratio 1.0 L Vitamin B12 Folate Procalcitonin Assessment & Plan - Assessment and Plan (Free Text) Assessment: 87 F with past medical history includes DC, COPD, HTN presents from an assisted living for altered mental status secondary to delirium due to left lower lobe mass, copd and metabolic - CT head showed nonspecific white matter changes - continue treatment for copd and possible PNE - monitor electrolytes, correct as needed - delirium precaution - MRI with order MRI to evaluate for mets - gentle hydration Case reviewed and discussed with attending <Kwasi Trujillo - Last Filed: 04/15/17 23:34> Meds - Medications Medications: Current Medications Albuterol/Ipratropium (Duoneb 3 Mg/0.5 Mg (3 Ml) Ud) 3 ml IH Q2H PRN PRN Reason: Shortness of Breath Last Admin: 04/15/17 13:41 Dose: 3 ml Arformoterol Tartrate (Brovana) 15 mcg IH [id number] [facility]ELA Last Admin: 04/15/17 20:06 Dose: 15 mcg Aspirin (Aspirin Chewable) 81 mg PO DAILY [facility] Last Admin: 04/15/17 11:05 Dose: 81 mg Budesonide (Pulmicort Respules) 0.25 mg IH [id number] [facility]EL[facility] Last Admin: 04/15/17 20:06 Dose: 0.25 mg Doxycycline Hyclate 100 mg/ (Sodium Chloride) 100 mls @ 100 mls/hr IVPB Q12 [facility]ELA PRN Reason: Protocol Stop: 04/19/17 22:01 Last Admin: 04/15/17 22:20 Dose: 100 mls/hr Cefepime HCl (Maxipime 2gm) 2 gm in 100 mls @ 100 mls/hr IVPB DAILY [facility] PRN Reason: Protocol Stop: 04/19/17 14:01 Lactulose (Enulose) 20 gm PO HS [facility]ELA Last Admin: 04/15/17 22:19 Dose: 20 gm Pantoprazole Sodium (Protonix Ec Tab) 40 mg PO 0600 [facility] Last Admin: 04/15/17 06:09 Dose: 40 mg Tramadol/Acetaminophen (Ultracet 37.5/325 Mg) 1 tab PO Q8H PRN PRN Reason: Pain, severe (8-10) Last Admin: 04/15/17 14:09 Dose: 1 tab Results - Vital Signs Recent Vital Signs: Last Vital Signs Temp 98 F 04/15/17 16:50 Pulse 92 H 04/15/17 16:50 Resp 20 04/15/17 16:50 BP 148/57 L 04/15/17 16:50 Pulse Ox 97 04/15/17 16:50 - Labs Result Diagrams: 04/15/17 06:30 04/15/17 06:30 Labs: Laboratory Results - last 24 hr 04/15/17 04/15/17 06:30 06:30 WBC 8.1 RBC 3.77 Hgb 10.2 L Hct 32.1 L MCV 85.1 MCH 27.1 MCHC 31.8 RDW 14.3 Plt Count 290 MPV 11.0 Gran % 60.5 Lymph % (Auto) 24.4 [place] % (Auto) 10.4 H Eos % (Auto) 4.3 Baso % (Auto) 0.4 Gran # 4.90 Lymph # 2.0 [place] # 0.8 H Eos # 0.4 Baso # 0.03 Sodium 138 Potassium 4.2 Chloride 106 Carbon Dioxide 24 Anion Gap 12 BUN 20 Creatinine 1.0 Est GFR ( Amer) > 60 Est GFR (Non-Af Amer) 52 Random Glucose 92 Calcium 9.1 Total Bilirubin 0.6 AST 26 ALT 24 Alkaline Phosphatase 75 Total Protein 6.9 Albumin 3.4 Globulin 3.5 Albumin/Globulin Ratio 1.0 L Attending/Attestation - Attestation I have personally seen and examined this patient.: Yes I have fully participated in the care of the patient.: Yes I have reviewed all pertinent clinical information: Yes
--- NOTE | 2017-04-15 19:13 | MRI ---
PROCEDURE: MRI BRAIN WITHOUT CONTRAST HISTORY: AMS COMPARISON: None. TECHNIQUE: Multiplanar, multisequence MR images of the brain were obtained without intravenous contrast enhancement. FINDINGS: HEMORRHAGE: None DWI: No evidence of an acute or early subacute infarction. BRAIN PARENCHYMA: No mass effect or edema. Mild atrophy is noted. [id number] white matter changes are also seen suggestive but nonspecific for chronic microvascular ischemic disease. VENTRICLES: Unremarkable. No hydrocephalus. CRANIUM: Unremarkable. ORBITS: Grossly unremarkable. PARANASAL SINUSES/MASTOIDS: Clear VASCULAR SYSTEM: Skull base flow voids intact. OTHER FINDINGS: None. IMPRESSION: No evidence of acute infarction or acute pathology in the brain. No evidence of mass lesion mass effect or midline shift. Mild atrophy and [id number] white matter changes suggestive of chronic microvascular ischemic disease.
--- NOTE | 2017-04-15 19:34 | US ---
HISTORY: Leg pain and swelling. Evaluate for DVT PHYSICIAN(S): Chicho Christian MD. TECHNIQUE: Duplex sonography and color-flow Doppler with graded compression were used to evaluate the deep venous systems of both lower extremities. The exam is very limited by the patient's contracted state and inability to cooperate. FINDINGS: The visualized deep venous systems of both lower extremities are sonographically normal and compressible. Normal wave forms and augmentation are seen. There is no sonographic evidence for deep venous thrombosis in the visualized segments of both lower extremities. IMPRESSION: No sonographic evidence for deep venous thrombosis in the visualized segments of both lower extremities. Limited study.
--- NOTE | 2017-04-15 20:02 | CON ---
DATE: 04/15/2017 The patient is seen in 561, bed 1. CHIEF COMPLAINT: Change in mental status x2 days. HISTORY OF PRESENT ILLNESS: This is an 87-year-old female, group home patient with coronary artery disease, myocardial infarction, chronic obstructive lung disease, hypertension, chronically ill, cachectic appearing, the patient is a long-time heavy smoker, admitted with a diagnosis of pneumonia and altered mental status. Infectious Disease consultation requested. REVIEW OF SYSTEMS: Reveal that there has been no fevers and no chills reported. There is mild shortness of breath, minimal cough. No abdominal pain, diarrhea or constipation. PAST MEDICAL HISTORY: Significant for coronary artery disease, myocardial infarction, chronic obstructive lung disease, hypertension. PAST SURGICAL HISTORY: Noncontributory. The patient was given Macrobid for urinary tract infection as outpatient. The patient is a heavy smoker. ALLERGIES: THE PATIENT HAS NO KNOWN ALLERGIES. MEDICATIONS AT HOME: Reviewed. PHYSICAL EXAMINATION: VITAL SIGNS: On exam, the patient's temperature is 98, blood pressure is 140/50, respiratory rate of 20, heart rate of 76. HEENT: Examination of HEENT is unremarkable. NECK: Supple. LUNGS: Have decreased breath sounds. HEART: Normal S1 and S2. ABDOMEN: Examination is soft, nontender. LABORATORY EXAMINATION: Reveals the patient has a white count of 9.5, hemoglobin of 11 and platelets of 304. Chemistry: BUN of 23, creatinine of 0.9. Procalcitonin is 0.07. Urinalysis is noted and wbc's one to three. Microbiology: Blood cultures have no growth. The patient was found to have a CAT scan which showed a left upper wall mass and infiltrate. ASSESSMENT AND PLAN: This is an 87-year-old female with coronary artery disease, myocardial infarction, chronic obstructive lung disease, hypertension with a left upper lobe lung mass, left lower lobe pneumonia with healthcare-associated pneumonia with T12 compression fracture. We will treat the patient with doxycycline and Maxipime. Check on the final cultures, but a negative procalcitonin doubt to be bacterial pneumonia and may change the doxycycline to p.o. in next 24 hours. Discontinue the cefepime if all cultures are negative. Overall prognosis quite poor, should be on hospice setting. Monroe Costa MD [facility] # [id number]
[2017-04-16 05:59] VITALS: TEMP 98.9
[2017-04-16] MEDS: Pantoprazole 40 mg EC Tab PO SCH (06:32)
[2017-04-16] MEDS: Arformoterol 15 mcg/2 ml Inh Sol IH SCH (08:30)
[2017-04-16] MEDS: Budesonide 0.25 mg/2 ml Inhal Susp UD IH SCH (08:31)
[2017-04-16 08:34] LABS: BASO # 0.03 K/mm3 (0.0-2.0); BASO % 0.3 % (0.0-3.0); EOS # 0.3 (0.0-0.7); EOS % 2.9 % (1.5-5.0); GRAN # 6.2 (1.4-6.5); GRAN % 64.8 % (50.0-68.0); HEMATOCRIT 32.4 % (36.0-48.0); LYMPH # 2.1 (1.2-3.4); LYMPH % 21.4 % (22.0-35.0); MEAN CORPUSCULAR HEMOGLOBIN 27.6 pg (25.0-35.0); MEAN CORPUSCULAR HGB CONC 32.4 g/dl (31.0-37.0); MEAN PLATELET VOLUME 11.1 fl (7.0-11.0); MONO % 10.6 % (1.0-6.0); RED CELL DISTRIBUTION WIDTH 14.4 % (11.5-14.5); WHITE BLOOD COUNT 9.6 10^3/ul (4.5-11.0)
[2017-04-16 09:25] VITALS: BP 149/73; PULSE 87; RESP 18; O2SAT 95
[2017-04-16 09:41] LABS: ALKALINE PHOSPHATASE 83 U/L (38-126); ALT/SGPT 15 U/L (7-56); AST/SGOT 24 U/L (14-36); BILIRUBIN,TOTAL 0.5 mg/dL (0.2-1.3); BLOOD UREA NITROGEN 19 mg/dL (7-21); CALCIUM 9.4 mg/dL (8.4-10.5); CARBON DIOXIDE 22 mmol/L (21-33); CHLORIDE 107 mmol/L (98-107); GFR AFRICAN-AMERICAN > 60; GLUCOSE,RANDOM 105 mg/dL (70-110); POTASSIUM 3.9 mmol/L (3.6-5.0); SODIUM 138 mmol/L (132-148); TOTAL PROTEIN 7.3 g/dL (5.8-8.3)
--- NOTE | 2017-04-16 12:33 | PN ---
DATE: 04/16/2017 SUBJECTIVE: The patient is in bed in no acute distress. OBJECTIVE: VITAL SIGNS: Temperature is 98, blood pressure is 140/50, and respiratory rate of 18. HEENT: Unremarkable. NECK: Supple. LUNGS: Have decreased breath sounds. HEART: Normal S1 and S2. ABDOMEN: Soft and nontender. LABORATORY DATA: Reveals white count of 9.6, hemoglobin of 10, and platelets of 296. Urinalysis is noted. Chemistries are noted and microbiology reveals the cultures are negative.. Procalcitonin noted. ASSESSMENT AND PLAN: This is an 87-year-old female with coronary artery disease, myocardial infarction, chronic obstructive lung disease, hypertension, left upper lobe lung mass, left lower lobe pneumonia, healthcare-associated pneumonia, and T12 compression fracture. We will discontinue the IV doxycycline and Maxipime and we will complete with p.o. doxycycline 100 mg p.o. b.i.d. x5 days and supportive care only for this patient. The patient's cultures are negative and the patient had an MRI of the brain yesterday of which the results are reviewed. oMnroe Costa MD
--- NOTE | 2017-04-16 13:03 | CP.PCM.DIS ---
<Rolando Denny - Last Filed: 04/16/17 13:00> Provider - Provider Date of Admission: 04/13/17 20:44 Attending physician: Rd Jenkins MD Consults: Neuro/ Pulm/ ID Time Spent in preparation of Discharge (in minutes): 45 Hospital Course - Lab Results Lab Results: Micro Results 04/13/17 20:55 Urine Urine Culture - Final No Growth (<1,000 CFU/ML) Most Recent Lab Values WBC 9.6 10^3/ul (4.5-11.0) 04/16/17 08:00 RBC 3.81 10^6/uL (3.5-6.1) 04/16/17 08:00 Hgb 10.5 g/dL (12.0-16.0) L 04/16/17 08:00 Hct 32.4 % (36.0-48.0) L 04/16/17 08:00 MCV 85.0 fl (80.0-105.0) 04/16/17 08:00 MCH 27.6 pg (25.0-35.0) 04/16/17 08:00 MCHC 32.4 g/dl (31.0-37.0) 04/16/17 08:00 RDW 14.4 % (11.5-14.5) 04/16/17 08:00 Plt Count 296 10^3/uL (120.0-450.0) 04/16/17 08:00 MPV 11.1 fl (7.0-11.0) H 04/16/17 08:00 Gran % 64.8 % (50.0-68.0) 04/16/17 08:00 Lymph % (Auto) 21.4 % (22.0-35.0) L 04/16/17 08:00 [place] % (Auto) 10.6 % (1.0-6.0) H 04/16/17 08:00 Eos % (Auto) 2.9 % (1.5-5.0) 04/16/17 08:00 Baso % (Auto) 0.3 % (0.0-3.0) 04/16/17 08:00 Gran # 6.20 (1.4-6.5) 04/16/17 08:00 Lymph # 2.1 (1.2-3.4) 04/16/17 08:00 [place] # 1.0 (0.1-0.6) H 04/16/17 08:00 Eos # 0.3 (0.0-0.7) 04/16/17 08:00 Baso # 0.03 K/mm3 (0.0-2.0) 04/16/17 08:00 Sodium 138 mmol/L (132-148) 04/16/17 06:00 Potassium 3.9 mmol/L (3.6-5.0) 04/16/17 06:00 Chloride 107 mmol/L (98-107) 04/16/17 06:00 Carbon Dioxide 22 mmol/L (21-33) 04/16/17 06:00 Anion Gap 13 (10-20) 04/16/17 06:00 BUN 19 mg/dL (7-21) 04/16/17 06:00 Creatinine 1.0 mg/dl (0.7-1.2) 04/16/17 06:00 Est GFR ( Amer) > 60 04/16/17 06:00 Est GFR (Non-Af Amer) 52 04/16/17 06:00 Random Glucose 105 mg/dL (70-110) 04/16/17 06:00 Hemoglobin A1c 5.8 % (4.2-6.5) 04/14/17 07:30 Calcium 9.4 mg/dL (8.4-10.5) 04/16/17 06:00 Phosphorus 3.9 mg/dL (2.5-4.5) 04/13/17 18:30 Magnesium 2.2 mg/dL (1.7-2.2) 04/13/17 18:30 Iron 58 ug/dL (45-180) 04/14/17 07:30 TIBC 291 ug/dL (265-497) 04/14/17 07:30 % Saturation 20 % (20-55) 04/14/17 07:30 Transferrin 259.75 mg/dL (206-381) 04/14/17 07:30 Total Bilirubin 0.5 mg/dL (0.2-1.3) 04/16/17 06:00 AST 24 U/L (14-36) 04/16/17 06:00 ALT 15 U/L (7-56) 04/16/17 06:00 Alkaline Phosphatase 83 U/L (38-126) 04/16/17 06:00 Ammonia 9 umol/L (9-33) 04/14/17 07:30 Troponin I < 0.01 ng/mL 04/14/17 07:30 NT-Pro-B Natriuret Pep 546 pg/mL (0-450) H 04/14/17 07:30 Total Protein 7.3 g/dL (5.8-8.3) 04/16/17 06:00 Albumin 3.6 g/dL (3.0-4.8) 04/16/17 06:00 Globulin 3.7 gm/dL 04/16/17 06:00 Albumin/Globulin Ratio 1.0 (1.1-1.8) L 04/16/17 06:00 Triglycerides 74 mg/dL (35-160) 04/14/17 07:30 Cholesterol 148 mg/dL (130-200) 04/14/17 07:30 LDL Cholesterol Direct 90 mg/dL (0-129) 04/14/17 07:30 HDL Cholesterol 43 mg/dL (29-60) 04/14/17 07:30 Lipase 25 U/L (23-300) 04/13/17 18:30 Vitamin B12 311 pg/mL (239-931) 04/14/17 07:30 Folate 9.7 ng/mL 04/14/17 07:30 Procalcitonin 0.07 NG/ML (0.19-0.49) L 04/14/17 12:00 TSH 3rd Generation 2.38 mIU/mL (0.46-4.68) 04/14/17 07:30 Urine Color Yellow (YELLOW) 04/13/17 20:55 Urine Appearance Sl cloudy (CLEAR) 04/13/17 20:55 Urine pH 6.0 (4.7-8.0) 04/13/17 20:55 Ur Specific [place] 1.025 (1.005-1.035) 04/13/17 20:55 Urine Protein Trace mg/dL (<30 mg/dL) H 04/13/17 20:55 Urine Glucose (UA) Negative mg/dL (NEGATIVE) 04/13/17 20:55 Urine Ketones 15 mg/dL (NEGATIVE) H 04/13/17 20:55 Urine Blood Small (NEGATIVE) H 04/13/17 20:55 Urine Nitrate Negative (NEGATIVE) 04/13/17 20:55 Urine Bilirubin Negative (NEGATIVE) 04/13/17 20:55 Urine Urobilinogen 0.2 E.U./dL (<1 E.U./dL) 04/13/17 20:55 Ur Leukocyte Esterase Negative [place]/uL (NEGATIVE) 04/13/17 20:55 Urine RBC 1 - 3 /hpf (0-2) 04/13/17 20:55 Urine WBC 1 - 3 /hpf (0-6) 04/13/17 20:55 Ur Epithelial Cells 4 - 5 /hpf (0-5) 04/13/17 20:55 Urine Bacteria Few (NEG) 04/13/17 20:55 - Hospital Course Hospital Course: 87 F with past medical history includes RI (with angio - 2 years- unknown if any stent placement), COPD, HTN presents from an assisted living for altered mental status that is progressively worsening over the past 2 days. In the Ed basic lab work was performed. CTH: shows no acute abnormality. Septic work up done. CT chest: CT chest shows Lobulated soft tissue mass left upper lung concerning for neoplastic etiology. Biopsy could be performed for definitive pathologic diagnosis. Small left lower lung infiltrate and consolidation possibly infectious/atelectatic etiology. T12 compression fracture. Patient was started on antibiotics. Pulm and ID was consulted. She was started on Doxy and Cefepime. Patient was admitted for close monitoring. Spoke to the patients family in length which stated the patient is DNR/DNI (POLST) and family does not wish to pursue the lung mass and get a biopsy b/c even if it shows up as a malignancy they do not want to start any chemo or radiation. Neuro was consulted for AMS and recommended an MRI which was performed and negative for any acute intracranial abnormalities. ID recommended Doxycycline as an outpatient antibiotics. Today the patient is doing much better. No complaints at this time. Denies any [place], dizziness, f/c, sob, cp, abd pain, n/v/d. Dx: AMS / Pneumonia / Lung mass Discharge Exam - Head Exam Head Exam: ATRAUMATIC, NORMAL INSPECTION, NORMOCEPHALIC - Eye Exam Eye Exam: EOMI, PERRL - Respiratory Exam Respiratory Exam: Clear to PA & Lateral. absent: Rales, Rhonchi, Wheezes - Cardiovascular Exam Cardiovascular Exam: REGULAR RHYTHM, RRR, +S1, +S2 - GI/Abdominal Exam GI & Abdominal Exam: Normal Bowel Sounds, Soft. absent: Tenderness - Neurological Exam Neurological exam: Alert, Oriented x3 - Psychiatric Exam Psychiatric exam: Normal Affect, Normal Mood - Skin Skin Exam: Dry, Intact, Warm Discharge Plan - Discharge Medications Prescriptions: Doxycycline Hyclate [Doryx] 100 mg PO BID #10 cap - Follow Up Plan Condition: IMPROVED Disposition: TRANSF TO SNF Patient education suggested?: Yes Instructions: Urinary Tract Infection in Women (DC), COPD (Chronic Obstructive Pulmonary Disease) (DC), Altered Mental Status (GEN), Pneumonia (DC) Additional Instructions: Follow up with PMD with in 2-3 days. Finish the course of Doxycycline for another 5 days. Follow up with your pulmonary doctor with in 1-2 weeks. If your symptoms recur come back to the ED. <Jarret Mcbride - Last Filed: 04/17/17 08:55> Provider - Provider Date of Admission: 04/13/17 20:44 Attending physician: Rd Jenkins MD Hospital Course - Lab Results Lab Results: Micro Results 04/13/17 20:55 Urine Urine Culture - Final No Growth (<1,000 CFU/ML) Most Recent Lab Values WBC 9.6 10^3/ul (4.5-11.0) 04/16/17 08:00 RBC 3.81 10^6/uL (3.5-6.1) 04/16/17 08:00 Hgb 10.5 g/dL (12.0-16.0) L 04/16/17 08:00 Hct 32.4 % (36.0-48.0) L 04/16/17 08:00 MCV 85.0 fl (80.0-105.0) 04/16/17 08:00 MCH 27.6 pg (25.0-35.0) 04/16/17 08:00 MCHC 32.4 g/dl (31.0-37.0) 04/16/17 08:00 RDW 14.4 % (11.5-14.5) 04/16/17 08:00 Plt Count 296 10^3/uL (120.0-450.0) 04/16/17 08:00 MPV 11.1 fl (7.0-11.0) H 04/16/17 08:00 Gran % 64.8 % (50.0-68.0) 04/16/17 08:00 Lymph % (Auto) 21.4 % (22.0-35.0) L 04/16/17 08:00 [place] % (Auto) 10.6 % (1.0-6.0) H 04/16/17 08:00 Eos % (Auto) 2.9 % (1.5-5.0) 04/16/17 08:00 Baso % (Auto) 0.3 % (0.0-3.0) 04/16/17 08:00 Gran # 6.20 (1.4-6.5) 04/16/17 08:00 Lymph # 2.1 (1.2-3.4) 04/16/17 08:00 [place] # 1.0 (0.1-0.6) H 04/16/17 08:00 Eos # 0.3 (0.0-0.7) 04/16/17 08:00 Baso # 0.03 K/mm3 (0.0-2.0) 04/16/17 08:00 Sodium 138 mmol/L (132-148) 04/16/17 06:00 Potassium 3.9 mmol/L (3.6-5.0) 04/16/17 06:00 Chloride 107 mmol/L (98-107) 04/16/17 06:00 Carbon Dioxide 22 mmol/L (21-33) 04/16/17 06:00 Anion Gap 13 (10-20) 04/16/17 06:00 BUN 19 mg/dL (7-21) 04/16/17 06:00 Creatinine 1.0 mg/dl (0.7-1.2) 04/16/17 06:00 Est GFR ( Amer) > 60 04/16/17 06:00 Est GFR (Non-Af Amer) 52 04/16/17 06:00 Random Glucose 105 mg/dL (70-110) 04/16/17 06:00 Hemoglobin A1c 5.8 % (4.2-6.5) 04/14/17 07:30 Calcium 9.4 mg/dL (8.4-10.5) 04/16/17 06:00 Phosphorus 3.9 mg/dL (2.5-4.5) 04/13/17 18:30 Magnesium 2.2 mg/dL (1.7-2.2) 04/13/17 18:30 Iron 58 ug/dL (45-180) 04/14/17 07:30 TIBC 291 ug/dL (265-497) 04/14/17 07:30 % Saturation 20 % (20-55) 04/14/17 07:30 Transferrin 259.75 mg/dL (206-381) 04/14/17 07:30 Total Bilirubin 0.5 mg/dL (0.2-1.3) 04/16/17 06:00 AST 24 U/L (14-36) 04/16/17 06:00 ALT 15 U/L (7-56) 04/16/17 06:00 Alkaline Phosphatase 83 U/L (38-126) 04/16/17 06:00 Ammonia 9 umol/L (9-33) 04/14/17 07:30 Troponin I < 0.01 ng/mL 04/14/17 07:30 NT-Pro-B Natriuret Pep 546 pg/mL (0-450) H 04/14/17 07:30 Total Protein 7.3 g/dL (5.8-8.3) 04/16/17 06:00 Albumin 3.6 g/dL (3.0-4.8) 04/16/17 06:00 Globulin 3.7 gm/dL 04/16/17 06:00 Albumin/Globulin Ratio 1.0 (1.1-1.8) L 04/16/17 06:00 Triglycerides 74 mg/dL (35-160) 04/14/17 07:30 Cholesterol 148 mg/dL (130-200) 04/14/17 07:30 LDL Cholesterol Direct 90 mg/dL (0-129) 04/14/17 07:30 HDL Cholesterol 43 mg/dL (29-60) 04/14/17 07:30 Lipase 25 U/L (23-300) 04/13/17 18:30 Vitamin B12 311 pg/mL (239-931) 04/14/17 07:30 Folate 9.7 ng/mL 04/14/17 07:30 Procalcitonin 0.07 NG/ML (0.19-0.49) L 04/14/17 12:00 TSH 3rd Generation 2.38 mIU/mL (0.46-4.68) 04/14/17 07:30 Urine Color Yellow (YELLOW) 04/13/17 20:55 Urine Appearance Sl cloudy (CLEAR) 04/13/17 20:55 Urine pH 6.0 (4.7-8.0) 04/13/17 20:55 Ur Specific [place] 1.025 (1.005-1.035) 04/13/17 20:55 Urine Protein Trace mg/dL (<30 mg/dL) H 04/13/17 20:55 Urine Glucose (UA) Negative mg/dL (NEGATIVE) 04/13/17 20:55 Urine Ketones 15 mg/dL (NEGATIVE) H 04/13/17 20:55 Urine Blood Small (NEGATIVE) H 04/13/17 20:55 Urine Nitrate Negative (NEGATIVE) 04/13/17 20:55 Urine Bilirubin Negative (NEGATIVE) 04/13/17 20:55 Urine Urobilinogen 0.2 E.U./dL (<1 E.U./dL) 04/13/17 20:55 Ur Leukocyte Esterase Negative [place]/uL (NEGATIVE) 04/13/17 20:55 Urine RBC 1 - 3 /hpf (0-2) 04/13/17 20:55 Urine WBC 1 - 3 /hpf (0-6) 04/13/17 20:55 Ur Epithelial Cells 4 - 5 /hpf (0-5) 04/13/17 20:55 Urine Bacteria Few (NEG) 04/13/17 20:55 - Hospital Course Hospital Course: discussed w/ resident at length went over meds labs tests oupatient follow up questions plans
--- NOTE | 2017-04-16 14:43 | PN ---
DATE: 04/16/2017 SUBJECTIVE: The patient appears comfortable this morning. She is not short of breath at rest. PHYSICAL EXAMINATION: VITAL SIGNS: (Last noted in the computer): Temperature is 98.9, pulse 71, respirations 18/20, blood pressure 154/74. Oxygen saturation on room air is 94-97%. HEENT: Normocephalic, atraumatic. No JVD. CARDIOVASCULAR: Systolic ejection murmur at the lower left sternal border. No S3 gallop. LUNGS: Decreased breath sounds at the bases. Otherwise clear. EXTREMITIES: Mild edema. No cyanosis, no clubbing. Calves are nontender to palpation. GI: Abdomen is soft, nontender and nondistended. Bowel sounds are positive. SKIN: No acute rash. NEUROLOGIC: Limited at the present time. IMPRESSION: 1. Left upper lobe lung mass. 2. Rule out pneumonia, left lower lobe - less likely. 3. Chronic obstructive pulmonary disease. 4. Coronary artery disease. 5. Encephalopathy - improved. PLAN: The patient appears very comfortable this morning. She is not short of breath at rest. She does state to feeling much better overall. I did review the medical technologist blood bank's note from yesterday. Apparently, there was a family discussion that took place. The family's decision is not to pursue a workup for the lung mass. Given her advanced age and overall condition, I do agree with this approach. I would continue with the antibiotic coverage as per infectious disease. Input by neurology is also noted. I will also continue with the current nebulizer treatments. There is no significant bronchospasm on physical exam. In addition, there is no significant alveolar-arterial gradient. Clinical status of the patient is definitely improved - compared to the initial presentation. However, unfortunately, the future status/prognosis for this patient is poor. I will discuss the above with the attending physician. Lambert Johns MD SWAPNA
== END 2017-04-16 14:03 | DRG 193 ==
LOC: ED 17:35 → ERH 20:44 → 5RNO 04-14 01:10
PROVIDERS: ADMIT Internal Medicine; ATTEND Internal Medicine
DX: J18.9 Pneumonia, unspecified organism (principal); G93.40 Encephalopathy, unspecified; R64 Cachexia; J44.0 Chronic obstructive pulmonary disease with (acute) lower respiratory infection; M48.54XA Collapsed vertebra, not elsewhere classified, thoracic region, initial encounter for fracture; D64.9 Anemia, unspecified; F03.90 Unspecified dementia, unspecified severity, without behavioral disturbance, psychotic disturbance, mood disturbance, and anxiety; I10 Essential (primary) hypertension; I25.10 Atherosclerotic heart disease of native coronary artery without angina pectoris; I25.2 Old myocardial infarction; Y95 Nosocomial condition; Z66 Do not resuscitate; Z87.440 Personal history of urinary (tract) infections; F17.200 Nicotine dependence, unspecified, uncomplicated; R91.8 Other nonspecific abnormal finding of lung field